=== PATIENT | female | born 1950 | race Caucasian/White ===

== ENCOUNTER 2017-09-16 14:54 | Emergency (ER) | payer OTHER ==
[~2017-09-16] VITALS: Ht 165.1 cm; Wt 63.5 kg
[2017-09-16 15:04] VITALS: BP 108/48
[2017-09-16 15:34] LABS: Basophils # (auto) 0 uL; Basophils % (auto) 0.4 % (0.0-2.0); Eosinophils # (auto) 0.3 uL; Eosinophils % (auto) 2.6 % (0.0-7.0); Hematocrit 45.3 % (36.0-46.0); Hemoglobin 15.3 g/dL (12.2-16.2); Lymphocytes # (auto) 2.4 uL; Lymphocytes % (auto) 22.7 % (10.0-50.0); Mean Corpuscular Hemoglobin 30.1 pg (28.0-32.0); Mean Corpuscular Hgb Conc. 33.9 g/dL (32.0-36.0); Mean Corpuscular Volume 88.8 fL (80.0-100.0); Monocytes # (auto) 0.8 uL; Monocytes % (auto) 7.5 % (0.0-12.0); Neutrophils # (auto) 7.2 uL; Neutrophils % (auto) 66.8 % (37.0-80.0); Nucleated Red Blood Cells % 0.1 %; Platelet Count (auto) 215 10^3/uL (140-450); Red Cell Distribution Width 13.3 % (11.8-14.3); White Blood Cell 10.8 10^3/uL (4.4-10.8)
[2017-09-16 16:06] LABS: Alanine Aminotransferase 24 U/L (13-56); Albumin 3.5 g/dL (3.4-5.0); Alkaline Phosphatase 59 U/L (45-117); Amylase 57 U/L (25-115); Anion Gap 6 (5-15); Aspartate Aminotransferase 13 U/L (15-37); BUN/Creatinine Ratio 21.2; Bilirubin, Total 0.3 mg/dL (0.2-1.0); Blood Urea Nitrogen 14 mg/dL (7-18); Calcium 8.5 mg/dL (8.5-10.1); Carbon Dioxide 29 mmol/L (21-32); Chloride 105 mmol/L (98-107); GFR African American 115 mL/min; GFR Non-African American 95 mL/min; Glucose 135 mg/dL (74-106); Lipase 169 U/L (73-393); Magnesium 2.5 mg/dL (1.6-2.6); Potassium 3.6 mmol/L (3.5-5.1); Sodium 140 mmol/L (136-145); Total Protein 6.9 g/dL (6.4-8.2)
== END 2017-09-16 18:19 | disposition left against medical advice (07) ==
LOC: EDBD 14:54 → ER 14:54
DX: R10.30 Lower abdominal pain, unspecified (principal); R19.7 Diarrhea, unspecified; Z53.21 Procedure and treatment not carried out due to patient leaving prior to being seen by health care provider
CPT/HCPCS: 36415; 80053; 82150; 83690; 83735; 84484; 85025; 93005

== ENCOUNTER 2022-12-12 07:36 | Observation (INO) | payer OTHER ==
[~2022-12-12] VITALS: Ht 160 cm; Wt 81.0 kg
[2022-12-12] MEDS ORDERED: ALBUTEROL SULF 2.5 MG/0.5ML(0.5%) NEB SOLN NEB ONE ×2 (08:00→15:15)
[2022-12-12] MEDS ORDERED: IPRATROPIUM BROM 0.5 MG/2.5ML INH SOL NEB ONE ×2 (08:00→15:15)
[2022-12-12] MEDS ORDERED: DexAMETHasone SOD PHOS 10MG/1ML VIAL INJ IV ONE (08:00)
[2022-12-12 08:17] LABS: Basophils # (auto) 0 10 ^3/uL (0-0.2); Basophils % (auto) 0.6 % (0.0-2.0); Eosinophils # (auto) 0.1 10 ^3/uL (0-0.8); Eosinophils % (auto) 1.4 % (0.0-7.0); Hematocrit 45.9 % (36.0-46.0); Hemoglobin 15.2 g/dL (12.2-16.2); Lymphocytes # (auto) 2.4 10 ^3/uL (0.4-5.4); Lymphocytes % (auto) 27.8 % (10.0-50.0); Mean Corpuscular Hemoglobin 28.9 pg (28.0-32.0); Mean Corpuscular Hgb Conc. 33.1 g/dL (32.0-36.0); Mean Corpuscular Volume 87.4 fL (80.0-100.0); Monocytes # (auto) 0.8 10 ^3/uL (0-1.3); Monocytes % (auto) 9.7 % (0.0-12.0); Neutrophils # (auto) 5.2 10 ^3/uL (1.6-8.6); Neutrophils % (auto) 60.5 % (37.0-80.0); Nucleated Red Blood Cells % 0.1 %; Red Blood Cells 5.25 10^6/uL (4.0-5.20); Red Cell Distribution Width 12.8 % (11.8-14.3); White Blood Cell 8.5 10^3/uL (4.4-10.8)
[2022-12-12] MEDS ORDERED: ALBUTEROL MEDNEB 2.5 mg/3ml NEB ONE ×2 (08:24→15:31)
[2022-12-12 08:38] LABS: Alanine Aminotransferase 21 U/L (7-40); Albumin 4.6 g/dL (3.2-4.8); Alkaline Phosphatase 77 U/L (46-116); Anion Gap 3 (5-15); Aspartate Aminotransferase 16 U/L (13-40); BUN/Creatinine Ratio 16.4 (10.0-20.0); Blood Urea Nitrogen 10 mg/dL (9-23); Calcium 9.5 mg/dL (8.5-10.1); Carbon Dioxide 33 mmol/L (20-30); Chloride 104 mmol/L (98-107); Glucose 116 mg/dL (74-106); Potassium 4.2 mmol/L (3.5-5.1); Sodium 140 mmol/L (136-145)
[2022-12-12 08:39] LABS: Bilirubin, Total 0.5 mg/dL (0.2-1.0); Total Protein 6.6 g/dL (5.7-8.2)
[2022-12-12 09:07] LABS: Magnesium 2.2 mg/dL (1.6-2.6)
[2022-12-12 10:09] LABS: Urine Bacteria FEW /hpf (None Seen); Urine Blood Negative /uL (Negative); Urine Clarity Clear (Clear); Urine Color Yellow (Yellow); Urine Mucus FEW (None Seen); Urine Protein, UAD Negative (Negative); Urine Specific Gravity 1.013 (1.001-1.035); Urine Urobilinogen Normal (Negative); Urine WBC 1 /hpf (0 - 5); Urine pH 6.5 (5.0-8.0)
[2022-12-12 11:16] VITALS: PULSE 92; RESP 20; O2SAT 90
[2022-12-12] MEDS ORDERED: methylPREDNISolone SOD SUCC 125 MG/2 ML VL IV ONE (15:15)
[2022-12-12] MEDS ORDERED: MAGNESIUM SULFATE 1GM/100ML 100 ML IV ONE (15:15)
[2022-12-12] MEDS ORDERED: ACETAMINOPHEN 325 MG TAB PO PRN (15:45)
[2022-12-12] MEDS ORDERED: HYDROcodone-ACET 5/325MG TAB PO PRN (15:45)
[2022-12-12] MEDS ORDERED: MORPHINE SULFATE INJ 2 MG/ml SYRG IV PRN (15:45)
[2022-12-12 16:06] LABS: Base Excess -0.6 mmol/L (-2.0-2.0)
[2022-12-12] MEDS: ALBUTEROL MEDNEB 2.5 mg/3ml NEB NEB SCH (18:12)
[2022-12-12 18:13] VITALS: PULSE 102; RESP 20; O2SAT 95
[2022-12-12] MEDS: IPRATROPIUM BROM 0.5 MG/2.5ML INH SOL NEB SCH (18:13)
[2022-12-12 18:23] VITALS: PULSE 104; RESP 18; O2SAT 97
[2022-12-12 19:50] VITALS: PULSE 102; RESP 14; TEMP 98.5; O2SAT 91
[2022-12-12] MEDS ORDERED: guaiFENesin 200 MG/10 ML UD PO PRN (20:30)
[2022-12-12 21:15] VITALS: PULSE 101; RESP 16; O2SAT 94
[2022-12-12] MEDS: SODIUM CHLOR 0.9% PF (SALINE LOCK) 10ML VIAL/SYR IV SCH (22:00)
[2022-12-13] VITALS (8 sets, daily range): BP systolic 141; BP diastolic 82; PULSE 83–105; RESP 16–22; O2SAT 91–99
[2022-12-13] MEDS: IPRATROPIUM BROM 0.5 MG/2.5ML INH SOL NEB SCH ×5 (02:31→18:00)
[2022-12-13] MEDS: ALBUTEROL MEDNEB 2.5 mg/3ml NEB NEB SCH ×5 (02:31→18:00)
[2022-12-13] MEDS: SODIUM CHLOR 0.9% PF (SALINE LOCK) 10ML VIAL/SYR IV SCH ×2 (06:02→14:04)
[2022-12-13 07:06] LABS: Basophils # (auto) 0 10 ^3/uL (0-0.2); Eosinophils # (auto) 0 10 ^3/uL (0-0.8); Hematocrit 43.5 % (36.0-46.0); Hemoglobin 14.1 g/dL (12.2-16.2); Lymphocytes # (auto) 1.8 10 ^3/uL (0.4-5.4); Lymphocytes % (auto) 8.9 % (10.0-50.0); Mean Corpuscular Hemoglobin 28.7 pg (28.0-32.0); Mean Corpuscular Hgb Conc. 32.5 g/dL (32.0-36.0); Mean Corpuscular Volume 88.2 fL (80.0-100.0); Monocytes # (auto) 1.2 10 ^3/uL (0-1.3); Neutrophils # (auto) 16.9 10 ^3/uL (1.6-8.6); Neutrophils % (auto) 85.1 % (37.0-80.0); Red Blood Cells 4.93 10^6/uL (4.0-5.20); White Blood Cell 19.9 10^3/uL (4.4-10.8)
[2022-12-13 07:08] LABS: Alanine Aminotransferase 14 U/L (7-40); Albumin 4.3 g/dL (3.2-4.8); Alkaline Phosphatase 71 U/L (46-116); Anion Gap 5 (5-15); Aspartate Aminotransferase 15 U/L (13-40); Bilirubin, Total 0.4 mg/dL (0.2-1.0); Blood Urea Nitrogen 11 mg/dL (9-23); Calcium 9.3 mg/dL (8.7-10.4); Carbon Dioxide 29 mmol/L (20-30); Chloride 105 mmol/L (98-107); Glucose 146 mg/dL (74-106); Potassium 4.5 mmol/L (3.5-5.1); Sodium 139 mmol/L (136-145); Total Protein 6.5 g/dL (5.7-8.2)
[2022-12-13] MEDS: methylPREDNISolone SOD SUCC 40 MG/ML VL IV SCH ×2 (08:53→09:42)
[2022-12-13] MEDS ORDERED: ENOXAPARIN SOD 40 MG/0.4 ML SYRINGE SC SCH (10:00)
[2022-12-13] MEDS ORDERED: cefTRIAXone 1GM/50ML D5W 50 ML IV SCH (10:00)
[2022-12-13] MEDS ORDERED: AZITHROMYCIN 250 MG TAB PO SCH (10:00)
[2022-12-13] MEDS ORDERED: IPRA0.00 NEB (12:51)
[2022-12-13] MEDS ORDERED: PRED20TA2 PO (12:52)
[2022-12-13] MEDS ORDERED: AZIT-81 PO (12:53)
== END 2022-12-13 23:05 | disposition home or self-care (01) ==
LOC: EDBD 07:36 → ER 07:36 → UNDOADMIN 15:49 → TELE 15:49 → UNDODISIN 12-13 19:04
PROVIDERS: ADMIT Student in an Organized Health Care Education/Training Program; ATTEND Student in an Organized Health Care Education/Training Program
DX: J96.20 Acute and chronic respiratory failure, unspecified whether with hypoxia or hypercapnia (principal); J44.1 Chronic obstructive pulmonary disease with (acute) exacerbation; E78.5 Hyperlipidemia, unspecified; F17.210 Nicotine dependence, cigarettes, uncomplicated; Z85.41 Personal history of malignant neoplasm of cervix uteri
CPT/HCPCS: 36415; 36600; 71045; 80053; 81001; 82805; 83735; 84484; 85025; 93005; 94640; 96365; 96367; 96372; 96375; 96376; 99291; G0378; J0696; J1100; J1650; J2920; J2930; J3475; J7644; 96374

== ENCOUNTER 2024-05-03 05:39 | Inpatient (IN) | payer OTHER ==
[~2024-05-03] VITALS: Ht 157.5 cm; Wt 73.9 kg
[2024-05-03] VITALS (12 sets, daily range): BP systolic 110–118; BP diastolic 45–90; PULSE 92–145; RESP 16–39; TEMP 98; O2SAT 92–99
[~2024-05-03 05:39] MED LIST: AZIT-185 PO; IPRA0.00 NEB; PRED20TA2 PO
--- NOTE | 2024-05-03 05:47 | ED.PDOC ---
SOB-HPI HPI Comments 74-year-old female came to ER by EMS with shortness of breath. Per EMS, patient picked up at home, with history of COPD, has been short of breath the past week that progressively worsened last night associated with chest tightness. Was saturating at 57% at room air on scene. Patient placed on CPAP and it improved to 87% while en route to the ER. Breathing treatments give also. Chief Complaint: Shortness Of Breath Time Seen by MD: 05:46 Reviewed notes: Torpedo Specialist Notes Information Source: Patient, Emergency Med Personnel Mode of Arrival: EMS Severity: Moderate Timing: Hours Duration: Since onset Context: At Rest, With Light Exertion PE Risk Factors: None History of: COPD Prehospital treatment: C-Pap, Oxygen Modifying Factors: Nothing Associated Signs and Symptoms: Wheeze, Cough, Chest Pain Quality: Tightness Radiation: No Radiation Location: Chest (R), Chest (L) If cough with SOB: Non-Productive Past Medical History PAST MEDICAL HISTORY: COPD, HTN Surgical History: Denies all surgeries C 40A CREW CHIEF History: Denies all C 40A CREW CHIEF Hx Family History Family History: Reviewed,noncontributory to illness Social History Smoker: Cigarettes, Unknown Alcohol: Denies ETOH Use, Unknown Drugs: Denies Drug Use Lives In: Home Constitutional: denies: chills, diaphoresis, fatigue, fever, malaise, sweats, weakness, others EENTM: denies: blurred vision, double vision, ear bleeding, ear discharge, ear drainage, ear pain, ear ringing, eye pain, eye redness, hearing loss, mouth pain, mouth swelling, nasal discharge, nose bleeding, nose congestion, nose pain, photophobia, tearing, throat pain, throat swelling, voice changes, others Respiratory: reports: cough, SOB at rest, shortness of breath, SOB with excertion, wheezing; denies: hemoptysis, orthopnea, stridor, others Cardiovascular: reports: chest pain; denies: dizzy spells, diaphoresis, Dyspnea on exertion, edema, irregular heart beat, left arm pain, lightheadedness, palpitations, PND, syncope, others Gastrointestinal: denies: abdomen distended, abdominal pain, blood streaked bowels, constipated, diarrhea, dysphagia, difficulty swallowing, hematemesis, melena, nausea, poor appetite, poor fluid intake, rectal bleeding, rectal pain, vomiting, others Genitourinary: denies: abnormal vagina bleeding, burning, dyspareunia, dysuria, flank pain, frequency, hematuria, incontinence, pain, , vagina discharge, urgency, others Neurological: denies: dizziness, fainting, headache, left sided numbness, left sided weakness, numbness, paresthesia, pre-existing deficit, right sided numbness, right sided weakness, seizure, speech problems, tingling, tremors, weakness, others Musculoskeletal: denies: back pain, gout, joint pain, joint swelling, muscle pain, muscle stiffness, neck pain, others Integumetry: denies: bruises, change in color, change in hair/nails, dryness, laceration, lesions, lumps, rash, wounds, others Allergic/Immunocompromised: denies: Difficulty Healing, Frequent Infections, Hives, Itching, others Hematologic/Lymphatic: denies: anemia, blood clots, easy bleeding, easy bruising, swollen glands, others Endocrine: denies: excessive hunger, excessive sweating, excessive thirst, excessive urination, flushing, intolerance to cold, intolerance to heat, unexplained weight gain, unexplained weight loss, others Psychiatric: denies: anxiety, bipolar disorder, depression, hopeless, panic disorder, schizophrenia, sleepless, suicidal, others Physical Exam General Appearance: Moderate Distress, Normal HEENT: Normal ENT Inspection, Pharynx Normal, TMs Normal Neck: Full Range of Motion, Non-Tender, Normal, Normal Inspection Respiratory: Chest Non-Tender, No Accessory Muscle Use, Wheezing Cardiovascular: No Edema, No JVD, No Murmur, No Gallop, Normal Peripheral Pulses, Regular Rate/Rhythm Breast Exam: Deferred Gastrointestinal: No Organomegaly, Non Tender, No Pulsatile Mass, Normal Bowel Sounds, Soft Genitalia: Deferred Pelvic: Deferred Rectal: Deferred Extremities: No calf tenderness, Normal capillary refill, Normal inspection, Normal range of motion, Non-tender, No pedal edema Musculoskeletal : Apperance: Normal Neurologic: Alert, cell reliner II-XII nml as Tested, No Motor Deficits, Normal Affect, Normal Mood, No Sensory Deficits Cerebellar Function: Normal Reflexes: Normal Skin: Dry, Normal Color, Warm Lymphatic: No Adenopathy Was a procedure done? Was a procedure done?: No Differential Dx Differential Diagnosis: Anxiety, Asthma, CHF, COPD, Myocardial infarction, Pneumonia, Pneumothorax, Respiratory Distress, Pharyngitis, URI X-Ray, Labs, Meds, VS Vital Signs Date Time Temp Pulse Resp B/P (MAP) Pulse Ox O2 Delivery O2 Flow Rate FiO2 05/03/24 07:27 145 118/90 Nasal BiPAP Mask 100 05/03/24 06:15 138 159/75 Nasal BiPAP Mask 100 05/03/24 06:07 26 85 Bi-Pap+ 25 100 100 05/03/24 06:04 135 05/03/24 05:45 143 39 99 Bi-Pap+ 100 100 05/03/24 05:45 98.0 143 39 168/76 (106) 99 98.0 05/03/24 05:39 98.4 135 26 196/113 (140) 85 98.4 05/03/24 05:39 85 Bi-Pap+ 25 100 100 Lab Test 05/03/24 07:35 05/03/24 07:30 05/03/24 06:54 05/03/24 05:52 Range/Units Lactic Acid Level Pending Blood Gas Specimen Type Arterial Blood Gas Sample Site Right radial Blood Gas Patient Temperature 37.0 Arterial Blood Date Drawn [id number] Arterial Blood pH 7.301 L 7.350-7.450 Arterial Blood Partial Pressure CO2 49.4 H 32.0-45.0 mmHg Arterial Blood Partial Pressure O2 396.9 *H 83.0-108.0 mmHg Arterial Blood HCO3 23.8 21.0-28.0 mmol/L Arterial Blood Oxygen Saturation 99.8 H 94.0-98.0 % Arterial Blood Base Excess -3.0 L -2.0-3.0 mmol/L Arterial Blood Oxyhemoglobin 98.3 H 94.0-98.0 % Arterial Blood Carboxyhemoglobin 0.8 0.5-1.5 % Arterial Blood Methemoglobin 0.7 0.0-1.5 % Luther Test Yes Blood Gas Total Hemoglobin 14.60 12.0-16.0 g/dL Blood Gas Set Respiration Rate 12.0 Blood Gas Modality Mask - bipap Blood Gas Spontaneous Rate 29 FiO2 % 100.0 Blood Gas EPAP 5 Blood Gas IPAP 15 Blood Gas Critical Value Read Back yes Blood Gas Notified Whom Blood Gas Notified Time [id number] Blood Gas Notified By crown attacher r.marin Troponin I High Sensitivity 5 3 L </=34 ng/L White Blood Count 18.3 H 4.4-10.8 10^3/uL Red Blood Count 5.08 4.0-5.20 10^6/uL Hemoglobin 15.0 12.2-16.2 g/dL Hematocrit 45.6 36.0-46.0 % Mean Corpuscular Volume 89.6 80.0-100.0 fL Mean Corpuscular Hemoglobin 29.5 28.0-32.0 pg Mean Corpuscular Hemoglobin Concent 33.0 32.0-36.0 g/dL Red Cell Distribution Width 13.5 11.8-14.3 % Platelet Count 256 140-450 10^3/uL Mean Platelet Volume 9.3 6.9-10.8 fL Neutrophils (%) (Auto) 74.4 37.0-80.0 % Lymphocytes (%) (Auto) 12.1 10.0-50.0 % Monocytes (%) (Auto) 12.5 H 0.0-12.0 % Eosinophils (%) (Auto) 0.7 0.0-7.0 % Basophils (%) (Auto) 0.3 0.0-2.0 % Neutrophils # (Auto) 13.7 H 1.6-8.6 10 ^3/uL Lymphocytes # (Auto) 2.2 0.4-5.4 10 ^3/uL Monocytes # (Auto) 2.3 H 0-1.3 10 ^3/uL Eosinophils # (Auto) 0.1 0-0.8 10 ^3/uL Basophils # (Auto) 0 0-0.2 10 ^3/uL Nucleated Red Blood Cells 0.1 % Sodium Level 138 136-145 mmol/L Potassium Level 4.4 3.5-5.1 mmol/L Chloride Level 103 98-107 mmol/L Carbon Dioxide Level 28 20-31 mmol/L Anion Gap 7 5-15 Blood Urea Nitrogen 6 L 9-23 mg/dL Creatinine 0.51 L 0.550-1.02 mg/dL Glomerular Filtration Rate Calc 97 >90 mL/min BUN/Creatinine Ratio 11.8 10.0-20.0 Serum Glucose 154 H 74-106 mg/dL Calcium Level 9.4 8.7-10.4 mg/dL B-Type Natriuretic Peptide 39.74 0-100 pg/mL Current Medications Medications (Trade) Dose Ordered Sig/Sung Route Start Time Stop Time Status Last Admin Albuterol (Ventolin Medneb) 5 mg ONCE ONCE NEB 05/03/24 05:45 05/03/24 05:46 DC 05/03/24 06:14 Ipratropium [place] (Atrovent Medneb) 0.5 mg ONCE ONCE NEB 05/03/24 05:45 05/03/24 05:46 DC 05/03/24 06:14 Methylprednisolone Sodium Succinate (Solu Medrol) 125 mg ONCE ONCE IV 05/03/24 05:45 05/03/24 05:46 DC 05/03/24 05:53 Azithromycin (Zithromax Tablet) 500 mg ONCE ONCE PO 05/03/24 06:00 05/03/24 06:01 DC 05/03/24 06:12 Lorazepam (Ativan Inj) 0.5 mg ONCE ONCE IV 05/03/24 06:45 05/03/24 06:46 DC 05/03/24 07:00 Albuterol (Ventolin Medneb) 5 mg ONCE ONCE NEB 05/03/24 06:45 05/03/24 06:46 DC 05/03/24 07:27 Ipratropium [place] (Atrovent Medneb) 0.5 mg ONCE ONCE NEB 05/03/24 06:45 05/03/24 06:46 DC 05/03/24 07:27 Sodium Chloride 1,500 ml @ 1,500 mls/hr ONCE ONCE IV 05/03/24 07:30 05/03/24 08:29 05/03/24 07:27 Time of 1ST Reevaluation: 05:42 Reevaluation 1ST: Unchanged Patient Education/Counseling: Diagnosis, Treatment Family Education/Counseling: No Family Present Departure 1 Departure Time of Disposition: 07:46 Impression: Primary Impression: Sepsis Additional Impressions: COPD (chronic obstructive pulmonary disease) Hypoxia Dyspnea Leukocytosis Disposition: 09 ADMITTED INPATIENT Admit to: Tele Condition: Serious Critical Care Note Critical Care Time?: Yes (35 min-critical care time only) Critical care comment: Shortness of breath Stability Stability form required: No Heart Score Heart Score: Heart Score Response (Comments) Value History Moderate Suspicious 1 EKG Repolarization Disturb 1 Age >65 2 Risk Factors >3 or Hx ASHD 2 Troponin Normal limit 0 Total 6 I personally scribed for YOKASTA DESAI MD ([email or web address]) on 05/03/24 at 05:47. Electronically submitted by Kermit Benton ([email or web address]). YOKASTA DESAI MD May 03, 2024 05:47 RUIZ CROOK MD May 03, 2024 07:46
[2024-05-03] MEDS: methylPREDNISolone SOD SUCC 125 MG/2 ML VL IV ONE (05:53)
[2024-05-03] MEDS: AZITHROMYCIN 250 MG TAB PO ONE (06:12)
[2024-05-03] MEDS: IPRATROPIUM BROM 0.5 MG/2.5ML INH SOL NEB ONE ×2 (06:14→07:27)
[2024-05-03] MEDS: ALBUTEROL SULF 2.5 MG/0.5ML(0.5%) NEB SOLN NEB ONE ×2 (06:14→07:27)
[2024-05-03 06:16] LABS: Basophils # (auto) 0 10 ^3/uL (0-0.2); Basophils % (auto) 0.3 % (0.0-2.0); Eosinophils # (auto) 0.1 10 ^3/uL (0-0.8); Eosinophils % (auto) 0.7 % (0.0-7.0); Hematocrit 45.6 % (36.0-46.0); Lymphocytes # (auto) 2.2 10 ^3/uL (0.4-5.4); Lymphocytes % (auto) 12.1 % (10.0-50.0); Mean Corpuscular Hemoglobin 29.5 pg (28.0-32.0); Mean Corpuscular Volume 89.6 fL (80.0-100.0); Monocytes # (auto) 2.3 10 ^3/uL (0-1.3); Monocytes % (auto) 12.5 % (0.0-12.0); Neutrophils # (auto) 13.7 10 ^3/uL (1.6-8.6); Neutrophils % (auto) 74.4 % (37.0-80.0); Nucleated Red Blood Cells % 0.1 %; Platelet Count (auto) 256 10^3/uL (140-450); Red Blood Cells 5.08 10^6/uL (4.0-5.20); Red Cell Distribution Width 13.5 % (11.8-14.3); White Blood Cell 18.3 10^3/uL (4.4-10.8)
--- NOTE | 2024-05-03 06:16 | ECG ---
[facility] Test Date: 2024-05-03 Test Time: 06:04:01 Pat Name: ARIAN DE OLIVEIRA Department: ER Room: [address] [place] [address] Gender: F Sprigger: JOEL : 1950 Requested By: YOKASTA DESAI Order Number: [id number] Reading MD: Fabian Zhang Measurements Intervals [place] Rate: 135 P: 90 WV: 133 QRS: 90 QRSD: 89 T: 262 QT: 368 QTc: 552 Interpretive Statements Sinus tachycardia Consider right atrial enlargement Borderline right axis deviation Anteroseptal infarct, old Repolarization abnormality, prob rate related Prolonged QT interval Electronically Signed On 05-03-2024 11:59:21 PDT by Fabian Zhang Please click the below link to view image of tracing.
[2024-05-03 06:26] LABS: Chloride 103 mmol/L (98-107); Potassium 4.4 mmol/L (3.5-5.1); Sodium 138 mmol/L (136-145)
--- NOTE | 2024-05-03 06:26 | DVH ---
CHEST RADIOGRAPH Indication: sob Technique: Single frontal view of the chest was obtained COMPARISON: XY CHEST PORTABLE on DOS: 12/12/22 FINDINGS: Lines and Tubes: None Lungs: Diffuse increased interstitial prominence Pleura: No effusion. No pneumothorax. Cardiomediastinal contours: Unremarkable Bones: Unremarkable IMPRESSION: Pulmonary vascular congestion or viral pneumonia
[2024-05-03 06:27] LABS: Anion Gap 7 (5-15); Calcium 9.4 mg/dL (8.7-10.4); Carbon Dioxide 28 mmol/L (20-31)
[2024-05-03 06:32] LABS: BUN/Creatinine Ratio 11.8 (10.0-20.0); Blood Urea Nitrogen 6 mg/dL (9-23); Glucose 154 mg/dL (74-106)
[2024-05-03] MEDS: LORazepam 2MG/ML-1ML VIAL IV ONE (07:00)
[2024-05-03] MEDS: SODIUM CHLORIDE 0.9% 1,500 ML IV ONE (07:27)
[2024-05-03] MEDS ORDERED: VANCOMYCIN PER PHARMACY 0 MG IV SCH ×2 (07:30→08:00)
[2024-05-03] MEDS ORDERED: SODIUM CHLORIDE 0.9% 1,000 ML IV ONE (07:45)
[2024-05-03] MEDS: PIPERACILLIN-TAZOB 3.375GM 100 ML IV ONE (07:58)
[2024-05-03] MEDS ORDERED: NITROGLYCERIN 0.4 MG SL TAB SL PRN (08:00)
[2024-05-03] MEDS ORDERED: MORPHINE SULFATE INJ 2 MG/ml SYRG IV PRN (08:00)
[2024-05-03] MEDS: SODIUM CHLORIDE 0.9% 1,000 ML IV ONE (08:15)
[2024-05-03] MEDS ORDERED: hydrALAZINE HCL 20 MG/ML VL IV PRN (08:15)
[2024-05-03] MEDS: dilTIAZem 25 MG/5 ML VIAL IV ONE (08:22)
[2024-05-03] MEDS ORDERED: ONDANSETRON HCL 4 MG/2 ML VIAL IV PRN (08:30)
[2024-05-03] MEDS ORDERED: DEXTROSE (50%) 50ML SYRG IV PRN (08:30)
[2024-05-03 08:43] LABS: INR 1.16 (0.9-1.15); Prothrombin Time 12.1 sec (9.3-11.8)
[2024-05-03] MEDS: VANCOMYCIN 1.5GM/300ML 300 ML IV ONE (08:50)
[2024-05-03] MEDS: ALBUTEROL SULF 2.5 MG/0.5ML(0.5%) NEB SOLN NEB SCH (09:27)
[2024-05-03] MEDS: IPRATROPIUM BROM 0.5 MG/2.5ML INH SOL NEB SCH (09:27)
[2024-05-03] MEDS: METOPROLOL TARTRATE 1MG/1ML-5ML VIAL IV ONE (09:51)
[2024-05-03] MEDS ORDERED: VANCOMYCIN 1GM/250ML KIT 200 ML IV SCH (10:00)
--- NOTE | 2024-05-03 10:17 | DVHHP2 ---
Admitting Diagnosis: sob History of Present Illness HPI 74 F who comes to ER for SOB over the last few days and worsening, EMS noted o2 sats to be 57% on room air and she was placed on CPAP and BIBA to ER. On arrival she was tachycardic and noted to have a wbc of 18k. She remains on BIPAP and will be admitted to tele for pulm/cardio eval, IV Abx, steroids and neb treatments. Home Meds Active Scripts Azithromycin (ZITHROMAX TABLET) 250 Mg Tb, 250 MG PO DAILY for 5 Days, #5 TAB 0 Refills Prov:STEVEN CORBETT 12/13/22 Prednisone (Prednisone) 20 Mg Tab, 40 MG PO DAILY for 5 Days, #10 EA 0 Refills Prov:STEVEN CORBETT 12/13/22 Ipratropium-Albuterol (Ipratropium [place]/Albut) 1 Tod Tod, 1 TOD NEB Q4HP MDD 6 times a day for 7 Days, #180 ML 1 Refill Prov:STEVEN CORBETT 12/13/22 Past Medical History Cardiac: HTN Pulmonary: COPD Review of Systems Constitutional: No symptom reported Pulmonary/Respiratory: Dyspnea Cardiovascular: No symptom reported Gastrointestinal: No symptom reported Genitourinary: No symptom reported Musculoskeletal: No symptom reported Psychiatric: No symptom reported H&P Exam Vital Signs Vital Signs Date Time Temp Pulse Resp B/P (MAP) Pulse Ox O2 Delivery O2 Flow Rate FiO2 05/03/24 09:51 140 115/49 05/03/24 09:27 96 Nasal BiPAP Mask 40 05/03/24 08:17 98.0 26 98.0 05/03/24 06:07 25 General Appeara: Well developed Neck Exam: Normal inspection Pulmonary/Respiratory: Respiratory distress, Decreased breath sounds Labs/Xrays Labs Test 05/03/24 08:57 05/03/24 07:35 05/03/24 07:30 05/03/24 05:52 Range/Units Troponin I High Sensitivity 13 </=34 ng/L Lactic Acid Level 1.2 0.4-2.0 mmol/L Blood Gas Specimen Type Arterial Blood Gas Sample Site Right radial Blood Gas Patient Temperature 37.0 Arterial Blood Date Drawn [id number] Arterial Blood pH 7.301 L 7.350-7.450 Arterial Blood Partial Pressure CO2 49.4 H 32.0-45.0 mmHg Arterial Blood Partial Pressure O2 396.9 *H 83.0-108.0 mmHg Arterial Blood HCO3 23.8 21.0-28.0 mmol/L Arterial Blood Oxygen Saturation 99.8 H 94.0-98.0 % Arterial Blood Base Excess -3.0 L -2.0-3.0 mmol/L Arterial Blood Oxyhemoglobin 98.3 H 94.0-98.0 % Arterial Blood Carboxyhemoglobin 0.8 0.5-1.5 % Arterial Blood Methemoglobin 0.7 0.0-1.5 % Luther Test Yes Blood Gas Total Hemoglobin 14.60 12.0-16.0 g/dL Blood Gas Set Respiration Rate 12.0 Blood Gas Modality Mask - bipap Blood Gas Spontaneous Rate 29 FiO2 % 100.0 Blood Gas EPAP 5 Blood Gas IPAP 15 Blood Gas Critical Value Read Back yes Blood Gas Notified Whom Blood Gas Notified Time [id number] Blood Gas Notified By rosey delgado White Blood Count 18.3 H 4.4-10.8 10^3/uL Red Blood Count 5.08 4.0-5.20 10^6/uL Hemoglobin 15.0 12.2-16.2 g/dL Hematocrit 45.6 36.0-46.0 % Mean Corpuscular Volume 89.6 80.0-100.0 fL Mean Corpuscular Hemoglobin 29.5 28.0-32.0 pg Mean Corpuscular Hemoglobin Concent 33.0 32.0-36.0 g/dL Red Cell Distribution Width 13.5 11.8-14.3 % Platelet Count 256 140-450 10^3/uL Mean Platelet Volume 9.3 6.9-10.8 fL Neutrophils (%) (Auto) 74.4 37.0-80.0 % Lymphocytes (%) (Auto) 12.1 10.0-50.0 % Monocytes (%) (Auto) 12.5 H 0.0-12.0 % Eosinophils (%) (Auto) 0.7 0.0-7.0 % Basophils (%) (Auto) 0.3 0.0-2.0 % Neutrophils # (Auto) 13.7 H 1.6-8.6 10 ^3/uL Lymphocytes # (Auto) 2.2 0.4-5.4 10 ^3/uL Monocytes # (Auto) 2.3 H 0-1.3 10 ^3/uL Eosinophils # (Auto) 0.1 0-0.8 10 ^3/uL Basophils # (Auto) 0 0-0.2 10 ^3/uL Nucleated Red Blood Cells 0.1 % Prothrombin Time 12.1 H 9.3-11.8 sec Prothrombin Time INR 1.16 H 0.9-1.15 Sodium Level 138 136-145 mmol/L Potassium Level 4.4 3.5-5.1 mmol/L Chloride Level 103 98-107 mmol/L Carbon Dioxide Level 28 20-31 mmol/L Anion Gap 7 5-15 Blood Urea Nitrogen 6 L 9-23 mg/dL Creatinine 0.51 L 0.550-1.02 mg/dL Glomerular Filtration Rate Calc 97 >90 mL/min BUN/Creatinine Ratio 11.8 10.0-20.0 Serum Glucose 154 H 74-106 mg/dL Calcium Level 9.4 8.7-10.4 mg/dL B-Type Natriuretic Peptide 39.74 0-100 pg/mL Assessment/Plan Primary Diagnosis 1) Acute respiratory failure 2) COPD exacerbation 3) Sepsis 4) HTN plan; admit tele, BIPAP PRN, IV ABx, nebs q4h standing, IV steroids, BCx, pulm/cardio eval, echo, daily labs, supportive care, cardiac diet, will follow Plan discussed with: Other (n) MICAELA BETANCOURT MD May 03, 2024 10:17
[2024-05-03] MEDS: InsuLIN REG 1unit/0.01ml Soln (100units/ml) SC SCH ×2 (11:39→23:10)
[2024-05-03] MEDS: ACCU-CHEK COMFORT CURVE STRIP VI SCH (11:39)
[2024-05-03 12:10] LABS: Base Excess -2.4 mmol/L (-2.0-3.0)
[2024-05-03] MEDS: methylPREDNISolone SOD SUCC 125 MG/2 ML VL IV SCH (12:21)
[2024-05-03 12:34] LABS: COVID19 ANTIGEN SOFIA FIA NEGATIVE (NEGATIVE); Rapid Influenza A Negative (Negative); Rapid Influenza B Negative (Negative)
--- NOTE | 2024-05-03 13:29 | DVHSR ---
APPROVED REPORT EXAM: Two-dimensional and M-mode echocardiogram with Doppler and color Doppler. Mitral Valve MitralMitral Stenosis E/A ratio0.02D MVAcm2 LEFT VENTRICLE The left ventricle is normal size. There is normal left ventricular wall thickness. The left ventricle is normal in structure and function. Left ventricle systolic function is normal. The Ejection Fraction is 55-60%. No regional wall motion abnormalities noted. RIGHT VENTRICLE The right ventricle is normal size. There is normal right ventricular wall thickness. The right ventricular systolic function is normal. ATRIA The left atrium size is normal. The right atrium size is normal. The interatrial septum is intact with no evidence for an atrial septal defect. MITRAL VALVE The mitral valve is normal in structure and function. There is no evidence of mitral valve prolapse. There is no mitral valve stenosis. There is no mitral valve regurgitation noted. PULMONIC VALVE The pulmonary valve is normal in structure and function. There is no pulmonic valvular regurgitation. There is no pulmonic valvular stenosis. TRICUSPID VALVE The tricuspid valve is normal in structure and function. There is no tricuspid valve regurgitation noted. There is no tricuspid valve prolapse or vegetation. There is no tricuspid valve stenosis. AORTIC VALVE The aortic valve is normal in structure and function. No aortic regurgitation is present. There is no aortic valvular stenosis. There is no aortic valvular vegetation. GREAT VESSELS The aortic root is normal in size. PERICARDIAL EFFUSION There is a no pericardial effusion. Conclusion There is normal left ventricular wall thickness. The left ventricle is normal in structure and function. Left ventricle systolic function is normal. The Ejection Fraction is 55-60%. There is no gross valvular pathology
[2024-05-03] MEDS ORDERED: PIPERACILLIN-TAZOB 3.375GM 100 ML IV SCH (14:00)
[2024-05-03] MEDS: PIPERACILLIN-TAZOB 3.375GM 100 ML IV SCH (14:51)
--- NOTE | 2024-05-03 16:34 | DVHINCON2 ---
DATE OF CONSULTATION: 05/03/2024 REFERRING PHYSICIAN: Kong Sutton MD CONSULTING PHYSICIAN: Mandi Harris MD INDICATION: Tachycardia. HISTORY OF PRESENT ILLNESS: The patient is a 74-year-old female with a history of COPD and hypertension, who presented to the hospital with complaints of worsening shortness of breath. In the ER, the patient was noted to be markedly hypoxic, saturation in the 50s. Currently, she is on CPAP. At presentation, she was also noted to be tachycardic, heart rate in the 130s and 140s. Currently, heart rate is in the low 100s. The patient received some Ativan and heart rate improved. The patient denies any chest pain as such. PAST MEDICAL HISTORY: * Hypertension. * COPD. MEDICATIONS: Per med rec. ALLERGIES: No known drug allergies. PHYSICAL EXAMINATION: GENERAL: Alert and awake. Mild respiratory distress. VITAL SIGNS: Blood pressure 110/50, pulse 106 per minute, saturation 92%. HEENT: No carotid bruits. No jugular venous distention. CHEST: Bilateral air entry. No rales or rhonchi. CARDIOVASCULAR: carotid pulses palpable. Normal S1, S2. Tachycardic. EXTREMITIES: No peripheral edema. DIAGNOSTIC DATA: White count 18, hemoglobin 15, platelets 256. Sodium 138, potassium 4.4, creatinine is 0.5. ASSESSMENT: * Impending respiratory failure. * Chronic obstructive pulmonary disease exacerbation. * Sinus tachycardia, likely secondary to underlying infection. * Sepsis. RECOMMENDATIONS: * Continue COPD treatment. * Avoid albuterol, use Xopenex if indicated. * Monitor electrolytes closely. * Treat underlying infection. * We will review echo once completed. * Continue telemetry monitoring. Thank you for allowing me to participate in the care of this patient. MD NAKUL Mendez/CHE/RY TID: [id number] RECEIPT: [id number]
--- NOTE | 2024-05-03 16:51 | DVH ---
Procedure: CT CHEST WITHOUT CONTRAST Reason for study/Clinical History: cough Comparison Study: None available at time of dictation. Exam Date: 05/03/2024 04:10 PM TECHNIQUE: Multidetector CT of the chest was performed from the lung apices to the upper abdomen with out the use of intravenous contract. Axial, coronal and sagittal multiplanar reformats were performed . Radiation Dose Information: CT Dose: CTDI volume is 16.01 mGy. Dose-length product is 686.58 mGy*cm The dose indicators for CT are the volume Computed Tomography (CT) Dose Index (CTDIvol) and the Dose Length Product (DLP), and are measured in units of mGy and mGy-cm, respectively. These indicators are not patient dose, but values generated from the CT scanner acquisition factors. The report includes radiation exposure data for exposures received during this examination. FINDINGS: Lower neck: Normal thyroid. Lungs: Focal consolidation seen in the right lower lobe peripherally, axial images 88 through 104, se malia 3. Small tree-in-bud infiltrate seen in the right mid lung field peripherally, axial image 76, series 3. Patchy small infiltrates seen in the right upper lobe, sub apical, sagittal image 45, series 602. Heart/Vascular Structures: Normal heart size. No pericardial effusion. Moderately severe vascular mickey cification of the aortic arch without aneurysm formation. Lymph Nodes: No adenopathy Pleura: No pleural effusion or significant pneumothorax. Musculoskeletal: No acute osseous abnormality. Soft tissues: Normal. Upper abdomen: Limited portions of the upper abdomen are unremarkable. IMPRESSION: 1. Infiltrate right lung base best seen on axial images 88 through 104, series 3.Normal Heart size No pleural effusions No abnormal adenopathy Radiation optimization: All CT scans at this facility use at least one of these dose optimization casper hniques: automated exposure control mA and/or kV adjustment per patient size (includes targeted exam s where dose is matched to clinical indication) or iterative reconstruction.
[2024-05-03] MEDS ORDERED: VANCOMYCIN 1GM/250ML KIT 250 ML IV SCH (21:00)
[2024-05-03] MEDS: VANCOMYCIN 1GM/250ML KIT 250 ML IV SCH (23:03)
--- NOTE | 2024-05-03 23:45 | DVHINCON2 ---
Date of service: May 03, 2024 Referring Physician Kong Betancourt MD Reason for Consultation Acute hypoxic/hypercarbic respiratory failure, AE COPD and pneumonia. History of Present Illness A 74-year-old woman with past medical history that includes COPD and hypertension who presents to ED today with c/o shortness of breath over the last few days with worsening. EMS noted o2 sats to be 57% on room air and she was placed on CPAP and brought in to ED. On arrival to ED, patient was tachycardic and noted to have a WBC of 18 K. She remained on BIPAP while in ED and was admitted for further care. Pulmonary consultation is requested for evaluation and management of acute hypoxic/hypercarbic respiratory failure, AE COPD and pneumonia. Review of Systems: 14-point review of systems negative unless otherwise noted above. Past Medical History: COPD and hypertension Past Surgical History: None Medications: Reviewed. Allergies: No known drug allergies. Family History: No family history of premature CAD. No family history of lung disorders. Social History: Nonsmoker. No alcohol or illicit drug use. Allergies: Coded Allergies: NO KNOWN ALLERGIES (Unverified , 09/16/17) Home Meds Active Scripts Albuterol Sulfate (Albuterol Sulfate Hfa) 108 Mcg/Act Aer, 108 MCG IN Q4HPRN PRN, #1 AER Prov:KONG BETANCOURT MD 05/04/24 Methylprednisolone (Medrol Dosepak) 4 Mg Jan, 4 MG PO UD, #21 TAB UAD Prov:KONG BETANCOURT MD 05/04/24 Levofloxacin Hemihydrate (LEVAQUIN 500 MG) 500 Mg Tab, 500 MG PO DAILY for 10 Days, #10 TAB Prov:KONG BETANCOURT MD 05/04/24 Ipratropium-Albuterol (Ipratropium [place]/Albut) 1 Tod Tod, 1 TOD NEB Q4HP MDD 6 times a day for 7 Days, #180 ML 1 Refill Prov:STEVEN CORBETT DO 12/13/22 Reported Medications Simvastatin (Simvastatin) 40 Mg Tab, 1 TAB PO 05/04/24 Ujqgzapuxba-Kofvohntddvg-Ioydg (Trelegy Ellipta 100-62.5-25 Mcg/INH) 1 Aer Aer, 1 PUFF INH DAILY 05/04/24 Current Medications Current Medications Medications (Trade) Dose Ordered Sig/Sung Route PRN Reason Start Time Stop Time Status Last Admin Vancomycin HCl 200 ml @ 200 mls/hr Q12HR IV 05/03/24 10:00 05/03/24 07:32 DC Piperacillin Sod/ Tazobactam Sod 100 ml @ 25 mls/hr Q6H IV 05/03/24 14:00 05/03/24 08:22 DC Vancomycin HCl 0 ml @ 0 mls/hr UD IV 05/03/24 07:30 05/03/24 08:23 DC Nitroglycerin (Ntrostat Sublingual) 0.4 mg Q5MINP PRN SL FOR CHEST PAIN 05/03/24 08:00 Morphine Sulfate 2 mg Q30M PRN IV FOR CHEST PAIN 05/03/24 08:00 Piperacillin Sod/ Tazobactam Sod 100 ml @ 100 mls/hr Q6H IV 05/03/24 14:00 05/03/24 20:19 Vancomycin HCl 0 ml @ 0 mls/hr UD IV 05/03/24 08:00 Albuterol (Ventolin Medneb) 2.5 mg Q4HR NEB 05/03/24 10:00 05/03/24 21:59 Ipratropium [place] (Atrovent Medneb) 0.5 mg Q4HR NEB 05/03/24 10:00 05/03/24 21:59 Methylprednisolone Sodium Succinate (Solu Medrol) 125 mg Q6HR IV 05/03/24 12:00 05/03/24 23:27 Hydralazine HCl (Apresoline Injection) 10 mg Q6HP PRN IV sbp >160 05/03/24 08:15 Diagnostic Test (Pha) (Accu-Chek Comfort Curve T) 1 strip ACHS 05/03/24 11:30 05/03/24 23:08 Insulin Human Regular (InsuLIN R) HS SC 05/03/24 22:00 05/03/24 23:10 Insulin Human Regular (InsuLIN R) AC SC 05/03/24 11:30 05/03/24 18:10 Dextrose 50 ml UD PRN IV Blood Sugar LESS THAN 60 05/03/24 08:30 Ondansetron HCl (Zofran) 4 mg Q4HP PRN IV n/v 05/03/24 08:30 Vancomycin HCl 250 ml @ 250 mls/hr Q12H IV 05/03/24 21:00 05/03/24 22:16 DC Vancomycin HCl 250 ml @ 250 mls/hr Q12H IV 05/03/24 23:00 05/03/24 23:03 Vital Signs Vital Signs Date Time Temp Pulse Resp B/P (MAP) Pulse Ox O2 Delivery O2 Flow Rate FiO2 05/03/24 22:07 99 18 98 05/03/24 19:00 110/45 (66) 05/03/24 17:56 Oxymizer 6.0 05/03/24 17:56 N/A 05/03/24 08:17 98.0 98.0 Physical Exam Gen.: Patient lying in bed in no apparent distress. On BiPAP. Head: Normocephalic, atraumatic. Eyes: EOMI/PERRLA. Ears: Normal hearing. Normal anatomy. Neck/trachea: Trachea midline, supple. Nose: Normal external anatomy. Mouth: Moist mucous membranes. Chest: Decreased air entry bilaterally. No wheezing or rhonchi. Cardiovascular: Positive S1, positive S2. Regular rate and rhythm. Abdomen: Positive bowel sounds in all 4 quadrants. Soft, non-tender, non- distended. : Deferred. Rectal: Deferred. Skin: Warm, dry. Intact. Extremities: 2+ radial pulses bilaterally. No lower extremity edema. Neuro: Awake, alert, oriented x3. No gross motor or sensory deficits. Cranial nerves II through XII intact. Gait not assessed. Labs/Diagnostic Data Labs Test 05/03/24 23:07 05/03/24 12:05 05/03/24 09:54 05/03/24 08:57 Range/Units POC Glucose 203 H 70-106 mg/dl Blood Gas Specimen Type Arterial Blood Gas Sample Site Right radial Blood Gas Patient Temperature 37.0 Arterial Blood Date Drawn [id number] Arterial Blood pH 7.287 L 7.350-7.450 Arterial Blood Partial Pressure CO2 53.2 H 32.0-45.0 mmHg Arterial Blood Partial Pressure O2 72.1 L 83.0-108.0 mmHg Arterial Blood HCO3 24.8 21.0-28.0 mmol/L Arterial Blood Oxygen Saturation 94.3 94.0-98.0 % Arterial Blood Base Excess -2.4 L -2.0-3.0 mmol/L Arterial Blood Oxyhemoglobin 92.9 L 94.0-98.0 % Arterial Blood Carboxyhemoglobin 1.1 0.5-1.5 % Arterial Blood Methemoglobin 0.4 0.0-1.5 % Luther Test Yes Blood Gas Total Hemoglobin 13.50 12.0-16.0 g/dL Blood Gas Set Respiration Rate 12.0 Blood Gas Modality Mask - bipap Blood Gas Spontaneous Rate 25 FiO2 % 40.0 Blood Gas EPAP 5 Blood Gas IPAP 15 Influenza Type A Antigen Negative Negative Influenza Type B Antigen Negative Negative SARS-CoV-2 Antigen (Rapid) Negative NEGATIVE Troponin I High Sensitivity 13 </=34 ng/L Test 05/03/24 07:35 05/03/24 07:30 05/03/24 05:52 Range/Units Lactic Acid Level 1.2 0.4-2.0 mmol/L Blood Gas Critical Value Read Back yes Blood Gas Notified Whom Blood Gas Notified Time [id number] Blood Gas Notified By rosey delgado White Blood Count 18.3 H 4.4-10.8 10^3/uL Red Blood Count 5.08 4.0-5.20 10^6/uL Hemoglobin 15.0 12.2-16.2 g/dL Hematocrit 45.6 36.0-46.0 % Mean Corpuscular Volume 89.6 80.0-100.0 fL Mean Corpuscular Hemoglobin 29.5 28.0-32.0 pg Mean Corpuscular Hemoglobin Concent 33.0 32.0-36.0 g/dL Red Cell Distribution Width 13.5 11.8-14.3 % Platelet Count 256 140-450 10^3/uL Mean Platelet Volume 9.3 6.9-10.8 fL Neutrophils (%) (Auto) 74.4 37.0-80.0 % Lymphocytes (%) (Auto) 12.1 10.0-50.0 % Monocytes (%) (Auto) 12.5 H 0.0-12.0 % Eosinophils (%) (Auto) 0.7 0.0-7.0 % Basophils (%) (Auto) 0.3 0.0-2.0 % Neutrophils # (Auto) 13.7 H 1.6-8.6 10 ^3/uL Lymphocytes # (Auto) 2.2 0.4-5.4 10 ^3/uL Monocytes # (Auto) 2.3 H 0-1.3 10 ^3/uL Eosinophils # (Auto) 0.1 0-0.8 10 ^3/uL Basophils # (Auto) 0 0-0.2 10 ^3/uL Nucleated Red Blood Cells 0.1 % Prothrombin Time 12.1 H 9.3-11.8 sec Prothrombin Time INR 1.16 H 0.9-1.15 Sodium Level 138 136-145 mmol/L Potassium Level 4.4 3.5-5.1 mmol/L Chloride Level 103 98-107 mmol/L Carbon Dioxide Level 28 20-31 mmol/L Anion Gap 7 5-15 Blood Urea Nitrogen 6 L 9-23 mg/dL Creatinine 0.51 L 0.550-1.02 mg/dL Glomerular Filtration Rate Calc 97 >90 mL/min BUN/Creatinine Ratio 11.8 10.0-20.0 Serum Glucose 154 H 74-106 mg/dL Calcium Level 9.4 8.7-10.4 mg/dL B-Type Natriuretic Peptide 39.74 0-100 pg/mL Assessment Impression: Acute hypoxic respiratory failure On NIPPV Acute exacerbation of COPD Sepsis Hypertension Leukocytosis Acute hypercarbic respiratory failure Pneumonia, likely gram negative Obesity BMI 30 Plan: On BiPAP with IPAP 15, EPAP 5 , FiO2 40% Titrate to keep O2 sats above 92%. Monitor respiratory status closely CT chest notable for focal consolidation in the right lower lobe, small tree-in-bud infiltrate in right mid lung field peripherally, patchy small infiltrates in right upper lobe, sub apical. See report for full details. Continue bronchodilators. Continue antibiotics IV steroids Monitor WBC Monitor renal function. Monitor electrolytes. Supplement as necessary. Monitor ins and outs. DVT prophylaxis. Prognosis: Poor given patient's multiple co-morbidities. Rest of plan per hospitalist and other consultants. Thank you, Dr. Betancourt, for allowing me to participate in this patient's care. Further recommendations will depend on the patient's clinical course. Please do not hesitate to contact me if you have any questions or concerns. This medical document was created using an electronic medical record system with [employer] system. Although these documentations are being carefully reviewed, there may still be some phonetic and typographical changes. The errors are purely typographical, due to imperfection on the software program, and do not reflect any compromise in the patient's medical care. Plan discussed with: Patient, Other (RN/Dr. Betancourt) LEE HOFF MD May 03, 2024 23:45
[2024-05-04] VITALS (22 sets, daily range): BP systolic 105–125; BP diastolic 38–59; PULSE 83–105; RESP 16–21; TEMP 97.5–98; O2SAT 93–99
[2024-05-04] MEDS ORDERED: FLUT1AER3 INH (00:29)
[2024-05-04] MEDS ORDERED: SIMV40TA18 PO (00:29)
--- NOTE | 2024-05-04 05:57 | DVHPN2 ---
Progress Note Date Seen: May 04, 2024 Medical Necessity Reason Pt with a Central, PICC or Fol: No Subjective Patient reports: No new complaints Review of Systems: RESPIRATORY:Abnormal Objective vital signs Vital Sign Date Time Temp Pulse Resp B/P (MAP) Pulse Ox O2 Delivery O2 Flow Rate FiO2 05/04/24 05:00 97.7 104 18 117/52 (73) 97 97.7 05/04/24 00:20 Oxymizer 6 N/A Total Intake and Output 05/03/24 05/03/24 05/04/24 15:00 23:00 07:00 Intake Total 750 ml Balance 750 ml medications Current Medications Medications Dose Ordered Sig/Sung Route Start Time Stop Time Status Last Admin Dose Admin Nitroglycerin 0.4 mg Q5MINP PRN SL 05/03/24 08:00 Morphine Sulfate 2 mg Q30M PRN IV 05/03/24 08:00 Piperacillin Sod/ Tazobactam Sod 100 ml @ 100 mls/hr Q6H IV 05/03/24 14:00 05/04/24 02:10 100 MLS/HR Vancomycin HCl 0 ml @ 0 mls/hr UD IV 05/03/24 08:00 Albuterol 2.5 mg Q4HR NEB 05/03/24 10:00 05/04/24 03:00 2.5 MG Ipratropium [place] 0.5 mg Q4HR NEB 05/03/24 10:00 05/04/24 03:00 0.5 MG Methylprednisolone Sodium Succinate 125 mg Q6HR IV 05/03/24 12:00 05/04/24 05:45 125 MG Hydralazine HCl 10 mg Q6HP PRN IV 05/03/24 08:15 Diagnostic Test (Pha) 1 strip ACHS 05/03/24 11:30 05/03/24 23:08 1 STRIP Insulin Human Regular HS SC 05/03/24 22:00 05/03/24 23:10 4 UNITS Insulin Human Regular AC SC 05/03/24 11:30 05/03/24 18:10 3 UNITS Dextrose 50 ml UD PRN IV 05/03/24 08:30 Ondansetron HCl 4 mg Q4HP PRN IV 05/03/24 08:30 Vancomycin HCl 250 ml @ 250 mls/hr Q12H IV 05/03/24 23:00 05/03/24 23:03 250 MLS/HR Examination: GENERAL:Normal, LUNGS:Abnormal, CVS:Normal, ABDOMEN:Normal laboratory and microbiology Laboratory Tests 05/03/24 05:52 Test 05/03/24 05:52 Range/Units Serum Glucose 154 H 74-106 mg/dL Problem List/Assessment/Plan Problem List/Assessment/Plan 1) Acute respiratory failure 2) COPD exacerbation 3) RLL PNA 4) HTN plan; off BIPAP on 6L oxymizer this AM, will attempt to wean to NC as tolerated, on IV ABx, nebs q4h, IV steroids, pulm consult, echo nml EF, HR has improved, continue care, will follow along, dc planning home on home o2 Plan discussed with: Other MICAELA BETANCOURT MD May 04, 2024 05:57
[2024-05-04] MEDS ORDERED: METH4PAK PO (07:23)
[2024-05-04] MEDS ORDERED: ALBU108A5 IN (07:23)
[2024-05-04] MEDS ORDERED: LEVO500T91 PO (07:23)
[2024-05-04 08:00] LABS: Basophils # (auto) 0 10 ^3/uL (0-0.2); Eosinophils # (auto) 0 10 ^3/uL (0-0.8); Hematocrit 36.2 % (36.0-46.0); Hemoglobin 12.4 g/dL (12.2-16.2); Lymphocytes # (auto) 1.3 10 ^3/uL (0.4-5.4); Lymphocytes % (auto) 6.7 % (10.0-50.0); Mean Corpuscular Hemoglobin 30.6 pg (28.0-32.0); Mean Corpuscular Hgb Conc. 34.2 g/dL (32.0-36.0); Mean Corpuscular Volume 89.5 fL (80.0-100.0); Monocytes # (auto) 1.4 10 ^3/uL (0-1.3); Monocytes % (auto) 7.1 % (0.0-12.0); Neutrophils # (auto) 16.7 10 ^3/uL (1.6-8.6); Neutrophils % (auto) 86.2 % (37.0-80.0); Platelet Count (auto) 212 10^3/uL (140-450); Red Blood Cells 4.04 10^6/uL (4.0-5.20); Red Cell Distribution Width 13.1 % (11.8-14.3); White Blood Cell 19.4 10^3/uL (4.4-10.8)
[2024-05-04 08:05] LABS: Chloride 104 mmol/L (98-107); Sodium 138 mmol/L (136-145)
[2024-05-04 08:06] LABS: Anion Gap 8 (5-15); Carbon Dioxide 26 mmol/L (20-31)
[2024-05-04 08:07] LABS: Calcium 9.4 mg/dL (8.7-10.4)
[2024-05-04 08:11] LABS: BUN/Creatinine Ratio 18.8 (10.0-20.0); Blood Urea Nitrogen 9 mg/dL (9-23)
[2024-05-04 08:12] LABS: Glucose 136 mg/dL (74-106)
[2024-05-04] MEDS ORDERED: ACETAMINOPHEN 325 MG TAB PO PRN (13:00)
--- NOTE | 2024-05-04 13:08 | DVHDS2 ---
New Physician D'charge PN Admitting Diagnosis Admitting Diagnosis sob Discharge Diagnosis pna copd Operations or Procedures none Reason(s) For Hospitalization Surgery Hospital Course 74 F who comes to ER c/o SOB over last few days, She has COPD and wears o2 2L intermittently. When she arrived she had to be placed on BIPAP and was admitted started on IV Abx, IV steroids and nebs around the clock. Cardio saw her and echo showed preserved EF. Her respiratory status improved and she was taken off the BIPAP and placed on nasal cannula 3-4L with sats >90%. Her CT chest revealed RLL PNA and thus she was treated with IV Abx here in hospital. Blood cultures are negative to date. Patient will dc home with home o2 along with 10 day course levaquin for community acquired PNA as well as medrol dose nohemy. Patient already has home o2 and will wear that 29/08. Nebulizer machine she also has along with the solution and she will continue nebs at home. [facility] to arrange for all outpt follow up and pt to be dc home. Treatment Plan Discharge Condition of Discharge Good Disposition Home Discharge Instructions Diet: Cardiac 2g Na,low cholest Activity: No Restrictions, As Tolerated Medications: see med sheet Follow Up Care Discharge Statement: "Patient was advised to return to the ER or call 911 if any headaches, dizziness, shortness of breath, chest pain, abdominal pain, bleeding, fevers, or worsening of medical condition. Patient was counseled about treatment plan, medications, possible side effects, patientverbalized understanding. All questions were answered to the best of my ability. This discharge took greater then 30 minutes in planning, reviewing documentation, counseling the patient, and discussing with other team members." MICAELA BETANCOURT MD May 04, 2024 13:08
[2024-05-04] MEDS ORDERED: guaiFENesin 200 MG/10 ML UD PO PRN (13:30)
[2024-05-04] MEDS: ACETYLCYSTEINE 20%(200MG/ML) SOL 4ML NEB SCH (13:45)
--- NOTE | 2024-05-04 21:26 | DVHPN2 ---
Progress Note - Dictate Date Seen: May 04, 2024 Medical Necessity Reason Pt with a Central, PICC or Fol: No Subjective Patient seen and examined at bedside. On supplemental oxygen Overnight events reviewed. vital signs Vital Sign Date Time Temp Pulse Resp B/P (MAP) Pulse Ox O2 Delivery O2 Flow Rate FiO2 05/04/24 20:00 Nasal Cannula* 4 36 05/04/24 18:06 90 16 99 05/04/24 17:00 97.6 124/59 (80) 97.6 Total Intake and Output 05/03/24 05/03/24 05/04/24 15:00 23:00 07:00 Intake Total 750 ml Balance 750 ml medications Current Medications Medications Dose Ordered Sig/Sung Route Start Time Stop Time Status Last Admin Dose Admin Nitroglycerin 0.4 mg Q5MINP PRN SL 05/03/24 08:00 Morphine Sulfate 2 mg Q30M PRN IV 05/03/24 08:00 Piperacillin Sod/ Tazobactam Sod 100 ml @ 100 mls/hr Q6H IV 05/03/24 14:00 05/04/24 16:38 100 MLS/HR Vancomycin HCl 0 ml @ 0 mls/hr UD IV 05/03/24 08:00 Albuterol 2.5 mg Q4HR NEB 05/03/24 10:00 05/04/24 18:16 2.5 MG Ipratropium [place] 0.5 mg Q4HR NEB 05/03/24 10:00 05/04/24 18:16 0.5 MG Methylprednisolone Sodium Succinate 125 mg Q6HR IV 05/03/24 12:00 05/04/24 18:15 125 MG Hydralazine HCl 10 mg Q6HP PRN IV 05/03/24 08:15 Diagnostic Test (Pha) 1 strip ACHS 05/03/24 11:30 05/04/24 16:31 1 STRIP Insulin Human Regular HS SC 05/03/24 22:00 05/03/24 23:10 4 UNITS Insulin Human Regular AC SC 05/03/24 11:30 05/04/24 11:30 3 UNITS Dextrose 50 ml UD PRN IV 05/03/24 08:30 Ondansetron HCl 4 mg Q4HP PRN IV 05/03/24 08:30 Vancomycin HCl 250 ml @ 250 mls/hr Q12H IV 05/03/24 23:00 05/04/24 11:00 250 MLS/HR Acetaminophen 650 mg Q4HP PRN PO 05/04/24 13:00 Budesonide 0.5 mg BID NEB 05/04/24 22:00 Guaifenesin 200 mg Q6HP PRN PO 05/04/24 13:30 Acetylcysteine 200 mg Q8HR NEB 05/04/24 14:00 05/04/24 13:45 200 MG objective Gen.: Patient lying in bed in no apparent distress. On supplemental oxygen. Head: Normocephalic, atraumatic. Eyes: EOMI/PERRLA. Ears: Normal hearing. Normal anatomy. Neck/trachea: Trachea midline, supple. Nose: Normal external anatomy. Mouth: Moist mucous membranes. Chest: Decreased air entry bilaterally. No wheezing or rhonchi. Cardiovascular: Positive S1, positive S2. Regular rate and rhythm. Abdomen: Positive bowel sounds in all 4 quadrants. Soft, non-tender, non- distended. : Deferred. Rectal: Deferred. Skin: Warm, dry. Intact. Extremities: 2+ radial pulses bilaterally. No lower extremity edema. Neuro: Awake, alert, oriented x3. No gross motor or sensory deficits. Cranial nerves II through XII intact. Gait not assessed laboratory and microbiology Laboratory Tests 05/04/24 06:38 Test 05/04/24 06:38 Range/Units Serum Glucose 136 H 74-106 mg/dL Assessment/Plan Impression: Acute hypoxic respiratory failure Dependence on supplemental oxygen Acute exacerbation of COPD Sepsis Hypertension Leukocytosis Acute hypercarbic respiratory failure Pneumonia, likely gram negative Events: Currently on supplemental oxygen, 4 LPM NC Taper O2 as tolerated BIPAP PRN. Continue bronchodilators Continue steroids - Solu-Medrol Taper steroids as tolerated Mucinex 600 q.12 hours + Mucomyst neb Continue antibiotics Labs and imaging reviewed. Rest of plan as noted below. Plan: Supplemental oxygen BiPAP PRN Titrate to keep O2 sats above 92%. CT chest on 05/03 notable for focal consolidation in the right lower lobe, small tree-in-bud infiltrate in right mid lung field peripherally, patchy small infiltrates in right upper lobe, sub apical. See report for full details. Continue bronchodilators. Continue antibiotics IV steroids Monitor WBC Monitor renal function. Monitor electrolytes. Supplement as necessary. Monitor ins and outs. DVT prophylaxis. Prognosis: Poor given patient's multiple co-morbidities. Rest of plan per hospitalist and other consultants. Thank you, Dr. Sutton, for allowing me to participate in this patient's care. Further recommendations will depend on the patient's clinical course. Please do not hesitate to contact me if you have any questions or concerns. This medical document was created using an electronic medical record system with [employer] dictation system. Although these documentations are being carefully reviewed, there may still be some phonetic and typographical changes. The errors are purely typographical, due to imperfection on the software program, and do not reflect any compromise in the patient's medical care. Plan discussed with: Patient, Other (HUMBLE Brown) LEE HOFF MD May 04, 2024 21:26
[2024-05-04] MEDS: BUDESONIDE (INHALATION) 0.5 MG/2 ML NEB NEB SCH (22:15)
[2024-05-05] VITALS (12 sets, daily range): BP systolic 108–136; BP diastolic 41–72; PULSE 79–116; RESP 14–18; TEMP 36.4; O2SAT 91–98
[2024-05-05 06:43] LABS: Basophils # (auto) 0 10 ^3/uL (0-0.2); Eosinophils # (auto) 0 10 ^3/uL (0-0.8); Hemoglobin 12.5 g/dL (12.2-16.2); Lymphocytes # (auto) 1.3 10 ^3/uL (0.4-5.4); Lymphocytes % (auto) 5.3 % (10.0-50.0); Mean Corpuscular Hemoglobin 29.3 pg (28.0-32.0); Mean Corpuscular Volume 88.8 fL (80.0-100.0); Monocytes # (auto) 1.6 10 ^3/uL (0-1.3); Monocytes % (auto) 6.2 % (0.0-12.0); Neutrophils # (auto) 22.2 10 ^3/uL (1.6-8.6); Neutrophils % (auto) 88.5 % (37.0-80.0); Platelet Count (auto) 247 10^3/uL (140-450); Red Blood Cells 4.28 10^6/uL (4.0-5.20); Red Cell Distribution Width 13.1 % (11.8-14.3); White Blood Cell 25.1 10^3/uL (4.4-10.8)
[2024-05-05 06:48] LABS: Chloride 103 mmol/L (98-107); Potassium 4.1 mmol/L (3.5-5.1); Sodium 139 mmol/L (136-145)
[2024-05-05 06:49] LABS: Anion Gap 8 (5-15); Calcium 9.4 mg/dL (8.7-10.4); Carbon Dioxide 28 mmol/L (20-31)
[2024-05-05 06:54] LABS: BUN/Creatinine Ratio 27.5 (10.0-20.0); Blood Urea Nitrogen 14 mg/dL (9-23)
[2024-05-05 06:55] LABS: Glucose 145 mg/dL (74-106)
--- NOTE | 2024-05-05 23:24 | DVHPN2 ---
Progress Note - Dictate Date Seen: May 05, 2024 Medical Necessity Reason Pt with a Central, PICC or Fol: No Subjective Patient seen and examined at bedside. On supplemental oxygen Overnight events reviewed. vital signs Vital Sign Date Time Temp Pulse Resp B/P (MAP) Pulse Ox O2 Delivery O2 Flow Rate FiO2 05/05/24 17:00 98.3 79 18 136/72 (93) 91 98.3 05/05/24 15:05 Nasal Cannula* 2 28 Total Intake and Output 05/04/24 05/04/24 05/05/24 15:00 23:00 07:00 Intake Total 551 ml 1150 ml Output Total 450 ml Balance 101 ml 1150 ml objective Gen.: Patient lying in bed in no apparent distress. On supplemental oxygen. Head: Normocephalic, atraumatic. Eyes: EOMI/PERRLA. Ears: Normal hearing. Normal anatomy. Neck/trachea: Trachea midline, supple. Nose: Normal external anatomy. Mouth: Moist mucous membranes. Chest: Decreased air entry bilaterally. No wheezing or rhonchi. Cardiovascular: Positive S1, positive S2. Regular rate and rhythm. Abdomen: Positive bowel sounds in all 4 quadrants. Soft, non-tender, non- distended. : Deferred. Rectal: Deferred. Skin: Warm, dry. Intact. Extremities: 2+ radial pulses bilaterally. No lower extremity edema. Neuro: Awake, alert, oriented x3. No gross motor or sensory deficits. Cranial nerves II through XII intact. Gait not assessed laboratory and microbiology Laboratory Tests 05/05/24 06:03 Test 05/05/24 06:03 Range/Units Serum Glucose 145 H 74-106 mg/dL Assessment/Plan Impression: Acute hypoxic respiratory failure Dependence on supplemental oxygen Acute exacerbation of COPD Sepsis Hypertension Leukocytosis Acute hypercarbic respiratory failure Pneumonia, likely gram negative Events: Remains on supplemental oxygen, 4 LPM NC Taper O2 as tolerated BIPAP PRN. Patient is improving Continue bronchodilators/Pulmicort Continue steroids - Solu-Medrol Taper steroids as tolerated Mucinex + Mucomyst neb Continue antibiotics Incentive spirometry Labs and imaging reviewed. Rest of plan as noted below. Plan: Supplemental oxygen BiPAP PRN Titrate to keep O2 sats above 92%. CT chest on 05/03 notable for focal consolidation in the right lower lobe, small tree-in-bud infiltrate in right mid lung field peripherally, patchy small infiltrates in right upper lobe, sub apical. See report for full details. Continue bronchodilators. Continue antibiotics IV steroids Monitor WBC Monitor renal function. Monitor electrolytes. Supplement as necessary. Monitor ins and outs. DVT prophylaxis. Prognosis: Poor given patient's multiple co-morbidities. Rest of plan per hospitalist and other consultants. Thank you, Dr. Sutton, for allowing me to participate in this patient's care. Further recommendations will depend on the patient's clinical course. Please do not hesitate to contact me if you have any questions or concerns. This medical document was created using an electronic medical record system with [employer] dictation system. Although these documentations are being carefully reviewed, there may still be some phonetic and typographical changes. The errors are purely typographical, due to imperfection on the software program, and do not reflect any compromise in the patient's medical care. Plan discussed with: Patient, Other (HUMBLE Brown) LEE HOFF MD May 05, 2024 23:24
== END 2024-05-05 18:02 | disposition home or self-care (01) | DRG 871 ==
LOC: EDBD 05:39 → ER 05:39 → OVERFLOW 07:58 → TELE-CENTR 08:09
PROVIDERS: ADMIT Internal Medicine; ATTEND Internal Medicine
PROC: 5A09357 Assistance with Respiratory Ventilation, Less than 24 Consecutive Hours, Continuous Positive Airway Pressure (ICD-10-PCS; principal; 2024-05-03)
DX: A41.50 Gram-negative sepsis, unspecified (principal); J15.69 Pneumonia due to other Gram-negative bacteria; J96.01 Acute respiratory failure with hypoxia; J96.02 Acute respiratory failure with hypercapnia; J15.9 Unspecified bacterial pneumonia; J44.1 Chronic obstructive pulmonary disease with (acute) exacerbation; I10 Essential (primary) hypertension; F17.210 Nicotine dependence, cigarettes, uncomplicated; E66.9 Obesity, unspecified; Z68.30 Body mass index [BMI] 30.0-30.9, adult; Z79.899 Other long term (current) drug therapy
CPT/HCPCS: 36415; 36600; 71045; 71250; 80048; 80202; 82805; 82962; 83605; 83880; 84484; 85025; 85610; 87040; 87426; 87804; 93005; 93306; 94640; 94660; 96374; 96375; 99291; G0378; J1815; J2543